=== PATIENT | male | born 1990 | race African-American/Black ===

== ENCOUNTER 2016-08-27 13:08 | Emergency (ER) | payer SELFPAY ==
[~2016-08-27] VITALS: Ht 193 cm; Wt 90.7 kg
[2016-08-27 13:24] VITALS: BP 125/74
--- NOTE | 2016-08-27 14:02 | RAD ---
Indication fall. Pain. An AP view of the pelvis was obtained as well as targeted AP and frog leg views of the right hip. Postoperative changes are noted. Orthopedic screws are noted. There is a healed fracture associated with the left ischium. Acute bony finding is not seen IMPRESSION: No acute bony finding
--- NOTE | 2016-08-27 14:19 | PHYS DOC ---
Past Medical History Past Medical History: No Pertinent History Past Surgical History: Hip Replacement Additional Past Surgical Histo: L hip Alcohol Use: None Drug Use: None Adult General Chief Complaint Chief Complaint: HIP PAIN HPI HPI Patient is a 26 year old medical presents with moderate right hip pain that began yesterday, patient states he was walking down some steps when he fell down 7 steps. Patient denies any loss of consciousness, patient states his pain is worse when he is ambulating. Review of Systems Review of Systems Constitutional: Denies fever or chills [] Eyes: Denies change in visual acuity, redness, or eye pain [] Musculoskeletal: right hip pain Integument: Denies rash or skin lesions [] Neurologic: Denies headache, focal weakness or sensory changes [] Endocrine: Denies polyuria or polydipsia [] Current Medications Current Medications Current Medications Medications (Trade) Dose Ordered Sig/Alley Start Time Stop Time Status Last Admin Dose Admin Acetaminophen/ Hydrocodone Bitart (Lortab 5/325) 2 tab 1X ONCE 08/27/16 14:30 08/27/16 14:31 DC 08/27/16 14:26 2 TAB Azithromycin (Zithromax) 1,000 mg 1X ONCE 08/27/16 15:15 08/27/16 15:16 DC 08/27/16 15:14 1,000 MG Ceftriaxone Sodium (Rocephin Im) 250 mg 1X ONCE 08/27/16 15:15 08/27/16 15:16 DC 08/27/16 15:14 250 MG Cyclobenzaprine HCl (Flexeril) 10 mg 1X ONCE 08/27/16 14:30 08/27/16 14:31 DC 08/27/16 14:26 10 MG Metronidazole (Flagyl) 2,000 mg 1X ONCE 08/27/16 15:15 08/27/16 15:16 DC 08/27/16 15:14 2,000 MG Allergies Allergies Allergies Coded Allergies Type Severity Reaction Last Updated Verified ibuprofen Allergy Intermediate rash 08/27/16 Yes Physical Exam Physical Exam Constitutional: Well developed, well nourished, no acute distress, non-toxic appearance. [] HENT: Normocephalic, atraumatic, bilateral external ears normal, oropharynx moist, no oral exudates, nose normal. [] Abdomen: Bowel sounds normal, soft, no tenderness, no masses, no pulsatile masses. [] Skin: Warm, dry, no erythema, no rash. [] Back: No tenderness, no CVA tenderness. [] Extremities: Right hip with no obvious deformity. Tenderness on palpation of the right lateral hip. Limited range of motion to the right hip especially external and internal rotation due to pain. Adequate flexion and extension of the right lower extremity. +2 right pedal pulse. Cap refill less than 2 seconds the right lower extremity. Sensation intact to the right lower extremity. Neurologic: Alert and oriented X 3, normal motor function, normal sensory function, no focal deficits noted. [] Psychologic: Affect normal, judgement normal, mood normal. [] Current Patient Data Vital Signs Vital Signs Date Time Temp Pulse Resp B/P Pulse Ox O2 Delivery O2 Flow Rate FiO2 08/27/16 14:26 14 98 Room Air 08/27/16 13:24 98.0 59 98.0 Lab Values Laboratory Tests Test 08/27/16 14:20 Urine Collection Type Unknown Urine Color Yellow Urine Clarity Clear Urine pH 5.0 Urine Specific Rattan 1.025 Urine Protein Negativemg/dL (NEG-TRACE) Urine Glucose (UA) Negativemg/dL (NEG) Urine Ketones (Stick) Negativemg/dL (NEG) Urine Blood Negative (NEG) Urine Nitrite Negative (NEG) Urine Bilirubin Negative (NEG) Urine Urobilinogen Dipstick 0.2mg/dL (0.2 mg/dL) Urine Leukocyte Esterase Moderate (NEG) Urine RBC 0/HPF (0-2) Urine WBC 20-40/HPF (0-4) Urine Squamous Epithelial Cells Occ/LPF Urine Bacteria Few/HPF (0-FEW) Urine Mucus Slight/LPF EKG EKG [] Radiology/Procedures Radiology/Procedures []PROCEDURE: HIP RIGHT 2V WITH PELVIS Indication fall. Pain. An AP view of the pelvis was obtained as well as targeted AP and frog leg views of the right hip. Postoperative changes are noted. Orthopedic screws are noted. There is a healed fracture associated with the left ischium. Acute bony finding is not seen IMPRESSION: No acute bony finding DICTATED and SIGNED BY: LUZ HWANG MD DATE: 08/27/16 7714 CC: AZAM TUCKER APRN; NO PCP ~ Course & Med Decision Making Course & Med Decision Making Pertinent Labs and Imaging studies reviewed. (See chart for details) Patient is in the ED with right hip pain after falling down 7 steps yesterday. The right hip x-ray with pelvic interpreted by radiologist is negative for any acute findings. Patient's urine was checked to make sure he does not have blood in it considering falling down 7 steps with no back pain, urine was negative for blood , urine was noted for significant UTI. Patient is 26, concern for STD was high. Spoke to patient who agreed to be treated. Patient was discharged with naproxen and Flexeril for his hip pain. Educated on safe sex practices especially the need to use protection at all times. Dragon Disclaimer Dragon Disclaimer This electronic medical record was generated, in whole or in part, using a voice recognition dictation system. Departure Departure Impression: Primary Impression: Contusion of hip, right Additional Impressions: Urinary tract infection Concern about STD in male without diagnosis Disposition: 01 HOME, SELF-CARE Condition: STABLE Referrals: NO PCP (PCP) RONDA NORWOOD MD follow-up in one week Patient Instructions: Contusion, [id number], Sexually Transmitted Disease Additional Instructions: You were seen for hip contusion after falling. Please take the prescribed medicines as needed. Your urine is also concerning for STDs. You were treated in the ED, contact all your sex partners, let them know you were treated for STDs and ask them to seek treatment too. Use protection at all times. Scripts Cyclobenzaprine Hcl 10 Mg Tablet1 Tab PO TID #30 TAB Prov:AZAM TUCKER APRN 08/27/16 Ciprofloxacin Hcl (Cipro)500 Mg Tablet1 Tab PO BID #14 TAB Prov:AZAM TUCKER APRN 08/27/16 Problem Qualifiers Additional Impressions: Urinary tract infection Urinary tract infection type: acute cystitis Hematuria presence: without hematuria Qualified Code: N30.00 - Acute cystitis without hematuria AZAM TUCKER APRN Aug 27, 2016 14:19
[2016-08-27] MEDS ORDERED: CYCLOBENZAPRINE 10 MG TABLET. PO ONE (14:30)
[2016-08-27] MEDS ORDERED: HYDROCODONE/APAP 5/325MG TABLET. PO ONE (14:30)
[2016-08-27 14:36] LABS: BILIRUBIN,URINE NEGATIVE (NEG); GLUCOSE,URINE NEGATIVE (NEG); NITRITE,URINE NEGATIVE (NEG); PROTEIN,URINE NEGATIVE (NEG-TRACE); UROBILINOGEN,URINE 0.2 mg/dL (0.2 mg/dL)
[2016-08-27 14:51] LABS: BACTERIA,URINE FEW /HPF (0-FEW); RBC,URINE 0 /HPF (0-2); SQUAMOUS EPITHELIAL CELL,UR OCC /LPF; WBC,URINE 20-40 /HPF (0-4)
[2016-08-27] MEDS ORDERED: CEFTRIAXONE IM 250 MG VIAL. IM ONE (15:15)
[2016-08-27] MEDS ORDERED: METRONIDAZOLE 500 MG TABLET. PO ONE (15:15)
[2016-08-27] MEDS ORDERED: AZITHROMYCIN 250 MG TABLET PO ONE (15:15)
[2016-08-27] MEDS ORDERED: CYCL10TA2 PO (15:33)
[2016-08-27] MEDS ORDERED: CIPR500T94 PO (15:33)
--- NOTE | 2016-08-29 16:21 | VNOTE ---
CALL BACK NOTE CALL BACK Patient was here first . Patient tested positive for chlamydia. He was treated with azithromycin in the emergency department.. Contact with the patient today and inform them of his test results and that he was treated. Patient had no questions for me at that time. BEV ASHER Aug 29, 2016 16:21
== END 2016-08-27 15:39 | disposition home or self-care (01) ==
LOC: ER 13:08
DX: S70.01XA Contusion of right hip, initial encounter (principal); N39.0 Urinary tract infection, site not specified; Z20.2 Contact with and (suspected) exposure to infections with a predominantly sexual mode of transmission; Z96.642 Presence of left artificial hip joint; Z88.6 Allergy status to analgesic agent; W10.9XXA Fall (on) (from) unspecified stairs and steps, initial encounter; Y93.89 Activity, other specified; Y99.8 Other external cause status; Y92.89 Other specified places as the place of occurrence of the external cause
CPT/HCPCS: 73502; 81001; 87491; 87591; 96372; 99285; J0696; Q0144